=== PATIENT | male | born 1940 | race Caucasian/White ===

== ENCOUNTER 2018-06-08 13:14 | Inpatient (IN) | payer MEDICARE ==
[~2018-06-08] VITALS: Ht 188 cm; Wt 72.7 kg
[2018-06-08] MEDS ORDERED: DSS100 PO (14:03)
[2018-06-08] MEDS ORDERED: TRAM50TA4 PO (14:03)
[2018-06-08] MEDS ORDERED: ATOR20TA86 PO (14:03)
[2018-06-08] MEDS ORDERED: BISA5TAB12 PO (14:03)
[2018-06-08] MEDS ORDERED: NICO-703 TD (14:03)
[2018-06-08] MEDS ORDERED: ASPI-1182 PO (14:03)
[2018-06-08 14:48] LABS: AMPHET/METH SCREEN,URINE NEGATIVE (NEGATIVE); BARBITURATE SCREEN, URINE NEGATIVE (NEGATIVE); BENZODIAZEPINES SCREEN,URINE NEGATIVE (NEGATIVE); CANNABINOID SCREEN,URINE NEGATIVE (NEGATIVE); COCAINE SCREEN,URINE NEGATIVE (NEGATIVE); METHADONE SCREEN, URINE NEGATIVE (NEGATIVE); OPIATE SCREEN,URINE NEGATIVE (NEGATIVE); PHENCYCLIDINE SCREEN,URINE NEGATIVE (NEGATIVE)
[2018-06-08 16:53] LABS: ANION GAP 9 mmol/L (8-16); CALCIUM, TOTAL 9.3 mg/dL (8.8-10.5); CARBON DIOXIDE 28 mmol/L (22-29); CHLORIDE 102 mmol/L (98-107); CREATININE 0.84 mg/dL (0.60-1.30); GLOMERULAR FILTR. RATE CALC > 60 mL/min (>60); GLUCOSE,RANDOM 95 mg/dL (70-110); POTASSIUM 4.2 mmol/L (3.5-5.1); SODIUM SERUM 139 mmol/L (136-145); UREA NITROGEN, BLOOD 16 mg/dL (7-18)
[2018-06-08 16:59] LABS: ALANINE AMINOTRANSFERASE 21 U/L (12-78); ALBUMIN 3.6 g/dL (3.4-5.0); ALKALINE PHOSPHATASE 89 U/L (46-116); ASPARTATE AMINOTRANSFERASE 20 U/L (15-37); BILIRUBIN,TOTAL 0.3 mg/dL (0.1-1.0); TOTAL PROTEIN, SERUM 7.8 g/dL (6.4-8.2)
[2018-06-08 17:01] LABS: BASOPHILS % (AUTO) 0.9 % (0.0-2.0); EOSINOPHILS % (AUTO) 1.4 % (1.0-6.0); HEMATOCRIT 43.2 % (41-53); HEMOGLOBIN 14.2 g/dL (13.5-17.5); LYMPHOCYTES # (AUTO) 2.3 K/uL (1.0-4.8); LYMPHOCYTES % (AUTO) 25.2 % (22.0-44.0); MEAN CORPUSCULAR HEMOGLOBIN 30.5 pg (26.0-34.0); MEAN CORPUSCULAR HGB CONC 32.8 G/dL (31.0-37.0); MEAN CORPUSCULAR VOLUME 93 fL (80-100); MONOCYTES # (AUTO) 0.7 K/uL (0.1-1.0); MONOCYTES % (AUTO) 8.2 % (2.0-9.0); NEUTROPHILS # (AUTO) 5.9 K/uL (1.8-7.7); NEUTROPHILS % (AUTO) 64.3 % (40.0-70.0); PLATELET COUNT (AUTO) 297 K/uL (150-450); RED BLOOD CELL COUNT(AUTO) 4.65 MIL/uL (4.50-5.90); RED CELL DISTRIBUTION WIDTH 14.3 % (11.5-14.5)
[2018-06-08] MEDS ORDERED: ACETAMINOPHEN 325 MG TABLET PO PRN ×2 (17:45→21:00)
[2018-06-08] MEDS ORDERED: VANCOMYCIN HCL 1 GM/D5% WATER 200 ML IV ONE (17:45)
[2018-06-08] MEDS ORDERED: 0.9% SODIUM CHLORIDE 10 ML SYRINGE IVP PRN (17:45)
[2018-06-08] MEDS ORDERED: ONDANSETRON HCL 4 MG/2 ML VIAL IVP PRN ×2 (17:45→21:00)
[2018-06-08 20:25] VITALS: BP 130/60
[2018-06-08] MEDS ORDERED: BISACODYL 10 MG RECTAL RECTAL SUPPOSITORY PR PRN (21:00)
[2018-06-08] MEDS ORDERED: MAGNESIUM HYDROXIDE SUSPENSION 30 ML UDCUP PO PRN (21:00)
[2018-06-08] MEDS ORDERED: MORPHINE SULFATE 2 MG/ML SYRINGE IVP PRN (21:00)
[2018-06-08] MEDS ORDERED: ZOLPIDEM TARTRATE 5 MG TABLET PO PRN (21:00)
[2018-06-08] MEDS ORDERED: SODIUM CHLORIDE 0.9% 500 ML IV ONE (21:54)
[2018-06-08] MEDS: DOCUSATE SODIUM 100 MG CAPSULE PO SCH (22:02)
[2018-06-08] MEDS: PIPERACILLIN/TAZO 3.375 GM/D5W 50 ML IV SCH (22:03)
[2018-06-08 23:21] VITALS: BP 135/67
[2018-06-09] MEDS ORDERED: VANCOMYCIN HCL 500 MG in DEXTROSE 5%-WATER 100 ML IV ONE ×2
[2018-06-09] MEDS ORDERED: PNEUMOCOCCAL VACCINE POLYVALENT 0.5 ML VIAL [PPSV23] IM ONE (02:00)
[2018-06-09] MEDS: PIPERACILLIN/TAZO 3.375 GM/D5W 50 ML IV SCH ×4 (02:57→20:44)
[2018-06-09] MEDS: HEPARIN SODIUM,PORCINE 5,000 UNITS/ML VIAL SQ SCH ×3 (07:53→14:56)
[2018-06-09] MEDS: ASPIRIN 81 MG EC TABLET PO SCH (07:58)
[2018-06-09] MEDS: PANTOPRAZOLE SODIUM 40 MG DR TABLET PO SCH (07:58)
[2018-06-09] MEDS: DOCUSATE SODIUM 100 MG CAPSULE PO SCH ×2 (07:58→20:45)
[2018-06-09] MEDS: VANCOMYCIN HCL 1 GM/D5% WATER 200 ML IV SCH ×2 (07:59→20:41)
[2018-06-09] MEDS: ATORVASTATIN CALCIUM 20 MG TABLET PO SCH (08:01)
[2018-06-09] MEDS: HYDROCODONE/ACETAMINOPHEN 5-325 MG TABLET PO PRN (14:59)
[2018-06-09 15:46] VITALS: BP 154/72
[2018-06-09 20:06] VITALS: BP 149/84
[2018-06-09] MEDS: SERTRALINE HCL 50 MG TABLET PO SCH (20:44)
[2018-06-10] MEDS: HEPARIN SODIUM,PORCINE 5,000 UNITS/ML VIAL SQ SCH ×3 (00:13→15:36)
[2018-06-10 00:27] VITALS: BP 129/80
[2018-06-10] MEDS: PIPERACILLIN/TAZO 3.375 GM/D5W 50 ML IV SCH ×4 (03:43→20:21)
[2018-06-10 04:00] VITALS: BP 141/66
[2018-06-10 07:10] VITALS: BP 137/70
[2018-06-10] MEDS: ATORVASTATIN CALCIUM 20 MG TABLET PO SCH (07:55)
[2018-06-10] MEDS: MULTIVITAMINS WITH MINERALS, THERAPEUTIC TABLET PO SCH (07:55)
[2018-06-10] MEDS: HYDROCODONE/ACETAMINOPHEN 5-325 MG TABLET PO PRN (07:55)
[2018-06-10] MEDS: ASPIRIN 81 MG EC TABLET PO SCH (07:55)
[2018-06-10] MEDS: PANTOPRAZOLE SODIUM 40 MG DR TABLET PO SCH (07:55)
[2018-06-10] MEDS: VANCOMYCIN HCL 1 GM/D5% WATER 200 ML IV SCH ×2 (07:56→20:21)
[2018-06-10] MEDS: DOCUSATE SODIUM 100 MG CAPSULE PO SCH ×2 (07:58→20:22)
[2018-06-10 09:13] LABS: BASOPHILS % (AUTO) 0.7 % (0.0-2.0); EOSINOPHILS % (AUTO) 0.6 % (1.0-6.0); HEMATOCRIT 40.2 % (41-53); HEMOGLOBIN 13.5 g/dL (13.5-17.5); LYMPHOCYTES # (AUTO) 1.4 K/uL (1.0-4.8); LYMPHOCYTES % (AUTO) 17.5 % (22.0-44.0); MEAN CORPUSCULAR HEMOGLOBIN 30.8 pg (26.0-34.0); MEAN CORPUSCULAR HGB CONC 33.5 G/dL (31.0-37.0); MEAN CORPUSCULAR VOLUME 92 fL (80-100); MONOCYTES # (AUTO) 0.4 K/uL (0.1-1.0); MONOCYTES % (AUTO) 4.7 % (2.0-9.0); NEUTROPHILS # (AUTO) 6.3 K/uL (1.8-7.7); NEUTROPHILS % (AUTO) 76.5 % (40.0-70.0); PLATELET COUNT (AUTO) 263 K/uL (150-450); RED BLOOD CELL COUNT(AUTO) 4.37 MIL/uL (4.50-5.90); RED CELL DISTRIBUTION WIDTH 14.1 % (11.5-14.5)
[2018-06-10 09:30] LABS: ALANINE AMINOTRANSFERASE 16 U/L (12-78); ALBUMIN 3.2 g/dL (3.4-5.0); ALKALINE PHOSPHATASE 69 U/L (46-116); ANION GAP 14 mmol/L (8-16); ASPARTATE AMINOTRANSFERASE 13 U/L (15-37); BILIRUBIN,TOTAL 0.5 mg/dL (0.1-1.0); CALCIUM, TOTAL 8.7 mg/dL (8.8-10.5); CARBON DIOXIDE 23 mmol/L (22-29); CHLORIDE 104 mmol/L (98-107); GLUCOSE,RANDOM 182 mg/dL (70-110); POTASSIUM 3.5 mmol/L (3.5-5.1); SODIUM SERUM 141 mmol/L (136-145); TOTAL PROTEIN, SERUM 7.1 g/dL (6.4-8.2); UREA NITROGEN, BLOOD 14 mg/dL (7-18)
[2018-06-10 09:32] LABS: GLOMERULAR FILTR. RATE CALC > 60 mL/min (>60)
[2018-06-10 09:53] LABS: VANCOMYCIN,RANDOM 60.9 mcg/mL (25.0-50.0)
[2018-06-10 11:50] VITALS: BP 113/57
[2018-06-10 15:47] VITALS: BP 118/58
[2018-06-10 19:47] VITALS: BP 134/67
[2018-06-10] MEDS: SERTRALINE HCL 50 MG TABLET PO SCH (20:22)
[2018-06-11 00:13] VITALS: BP 146/72
[2018-06-11] MEDS: PIPERACILLIN/TAZO 3.375 GM/D5W 50 ML IV SCH ×4 (02:59→20:19)
[2018-06-11 05:06] VITALS: BP 149/76
[2018-06-11] MEDS: HYDROCODONE/ACETAMINOPHEN 5-325 MG TABLET PO PRN (05:32)
[2018-06-11] MEDS: HEPARIN SODIUM,PORCINE 5,000 UNITS/ML VIAL SQ SCH ×4 (08:00→23:31)
[2018-06-11] MEDS: ATORVASTATIN CALCIUM 20 MG TABLET PO SCH (08:50)
[2018-06-11] MEDS: ASPIRIN 81 MG EC TABLET PO SCH (08:51)
[2018-06-11] MEDS: DOCUSATE SODIUM 100 MG CAPSULE PO SCH ×2 (08:51→20:19)
[2018-06-11] MEDS: MULTIVITAMINS WITH MINERALS, THERAPEUTIC TABLET PO SCH (08:51)
[2018-06-11] MEDS: PANTOPRAZOLE SODIUM 40 MG DR TABLET PO SCH (08:51)
[2018-06-11] MEDS: VANCOMYCIN HCL 1 GM/D5% WATER 200 ML IV SCH ×2 (08:52→20:18)
[2018-06-11 11:20] VITALS: BP 140/67
[2018-06-11 16:08] VITALS: BP 118/68
[2018-06-11 20:00] VITALS: BP 125/69
[2018-06-11] MEDS: SERTRALINE HCL 50 MG TABLET PO SCH (20:19)
[2018-06-12 00:44] VITALS: BP 128/72
[2018-06-12] MEDS: PIPERACILLIN/TAZO 3.375 GM/D5W 50 ML IV SCH ×2 (03:16→11:15)
[2018-06-12 04:00] VITALS: BP 135/80
[2018-06-12 08:00] VITALS: BP 131/71
[2018-06-12] MEDS: VANCOMYCIN HCL 1 GM/D5% WATER 200 ML IV SCH (08:12)
[2018-06-12] MEDS: MULTIVITAMINS WITH MINERALS, THERAPEUTIC TABLET PO SCH (08:13)
[2018-06-12] MEDS: ATORVASTATIN CALCIUM 20 MG TABLET PO SCH (08:13)
[2018-06-12] MEDS: ASPIRIN 81 MG EC TABLET PO SCH (08:13)
[2018-06-12] MEDS: HEPARIN SODIUM,PORCINE 5,000 UNITS/ML VIAL SQ SCH (08:13)
[2018-06-12] MEDS: PANTOPRAZOLE SODIUM 40 MG DR TABLET PO SCH (08:13)
[2018-06-12] MEDS: DOCUSATE SODIUM 100 MG CAPSULE PO SCH (08:13)
[2018-06-12 11:44] VITALS: BP 142/72
[2018-06-12] MEDS ORDERED: SERT50TA12 PO (12:44)
[2018-06-12] MEDS ORDERED: ASPI81 PO (12:44)
== END 2018-06-12 16:17 | disposition home or self-care (01) | DRG 565 ==
LOC: EMS 13:18 → 5N 21:00
PROVIDERS: ADMIT Internal Medicine; ATTEND Internal Medicine
DX: T87.53 Necrosis of amputation stump, right lower extremity (principal); E11.52 Type 2 diabetes mellitus with diabetic peripheral angiopathy with gangrene; I96 Gangrene, not elsewhere classified; R45.851 Suicidal ideations; I10 Essential (primary) hypertension; F29 Unspecified psychosis not due to a substance or known physiological condition; E11.621 Type 2 diabetes mellitus with foot ulcer; L97.509 Non-pressure chronic ulcer of other part of unspecified foot with unspecified severity; Z83.3 Family history of diabetes mellitus; Z82.49 Family history of ischemic heart disease and other diseases of the circulatory system; Z89.429 Acquired absence of other toe(s), unspecified side; Z59.0 Homelessness; F43.23 Adjustment disorder with mixed anxiety and depressed mood; F12.90 Cannabis use, unspecified, uncomplicated; Y82.8 Other medical devices associated with adverse incidents; Y83.8 Other surgical procedures as the cause of abnormal reaction of the patient, or of later complication, without mention of misadventure at the time of the procedure; Z28.21 Immunization not carried out because of patient refusal
CPT/HCPCS: 83036; 87040; 87070; 87081; 87205; 93925; 96365; 97161; 97166; 97535; G0378; G0480; J1644; J2543; J3370; J7040; J7060